=== PATIENT | female | born 1975 | race Two or more races ===

== ENCOUNTER 2017-08-02 21:16 | Inpatient (IN) | payer BC, OTHER ==
[~2017-08-02] VITALS: Ht 157.5 cm; Wt 85.3 kg
[2017-08-02] MEDS ORDERED: ENALAPRIL 2.5MG/2ML VIAL 2ML IV ONE (23:00)
[2017-08-02 23:14] LABS: BASOPHILS % 0.5 % (0.0-2.0); EOSINOPHILS % 3.1 % (0.0-5.0); HEMOGLOBIN. 12.7 g/dL (12.0-16.0); LYMPHOCYTES % 19.4 % (20.0-50.0); MEAN CORPUSCULAR HEMOGLOBIN 31.5 pg (28.0-32.0); MEAN CORPUSCULAR VOLUME 93.8 fL (81.0-99.0); MEAN PLATELET VOLUME 8.2 fl (7.4-10.4); MONOCYTES % 9.2 % (2.0-8.0); NEUTROPHILS % 67.8 % (40.0-76.0); PLATELET 271 x1000/uL (130-400); RED BLOOD CELL COUNT 4.05 mill/uL (4.2-5.4); RED CELL DISTRIBUTION WIDTH 13.8 % (11.6-14.6)
[2017-08-02 23:19] LABS: CHLORIDE 103 mEq/L (98-107)
[2017-08-02 23:22] LABS: CARBON DIOXIDE 27 mEq/L (21-32)
[2017-08-02 23:30] LABS: TROPONIN I < 0.02 ng/mL (0.00-0.04)
[2017-08-03 01:11] VITALS: BP 141/95
[2017-08-03] MEDS ORDERED: LISI-604 PO ×2 (01:26→15:38)
[2017-08-03] MEDS ORDERED: HYDROCODONE/ACETAMINOPHEN 5/325MG TABLET PO PRN (02:15)
[2017-08-03] MEDS ORDERED: CLONIDINE 0.1MG TABLET PO PRN (02:15)
[2017-08-03 04:00] VITALS: BP 104/62
[2017-08-03 06:17] LABS: BASOPHILS % 0.8 % (0.0-2.0); EOSINOPHILS % 3.6 % (0.0-5.0); HEMATOCRIT. 36.5 % (36.0-48.0); LYMPHOCYTES % 15.8 % (20.0-50.0); MEAN CORPUSCULAR HEMOGLOBIN 30.9 pg (28.0-32.0); MEAN CORPUSCULAR VOLUME 94.4 fL (81.0-99.0); MEAN PLATELET VOLUME 8.4 fl (7.4-10.4); MONOCYTES % 9.9 % (2.0-8.0); NEUTROPHILS % 69.9 % (40.0-76.0); PLATELET 247 x1000/uL (130-400); RED BLOOD CELL COUNT 3.87 mill/uL (4.2-5.4); RED CELL DISTRIBUTION WIDTH 13.8 % (11.6-14.6)
[2017-08-03 07:32] LABS: CARBON DIOXIDE 24 mEq/L (21-32); CHLORIDE 104 mEq/L (98-107)
[2017-08-03 08:00] VITALS: BP 132/87
[2017-08-03] MEDS ORDERED: ASPIRIN 325MG TABLET PO SCH (09:00)
[2017-08-03] MEDS ORDERED: METOPROLOL TARTRATE 50MG TABLET PO SCH (09:00)
[2017-08-03] MEDS ORDERED: LISINOPRIL 20MG TABLET PO SCH (09:00)
[2017-08-03] MEDS ORDERED: AMLODIPINE 10MG TABLET PO SCH (09:00)
[2017-08-03 12:00] VITALS: BP 131/89
[2017-08-03] MEDS ORDERED: METF-815 PO (15:38)
[2017-08-03] MEDS ORDERED: FUROSEMIDE 20MG TABLET PO NR (15:45)
== END 2017-08-03 17:20 | disposition home or self-care (01) | DRG 305 ==
LOC: ER 21:16 → 6WST 23:38 → EDBEDREQ 23:42 → ENRESERV 23:46
PROVIDERS: ADMIT Internal Medicine; ATTEND Internal Medicine
DX: I10 Essential (primary) hypertension (principal); E11.9 Type 2 diabetes mellitus without complications; E66.9 Obesity, unspecified; Z82.49 Family history of ischemic heart disease and other diseases of the circulatory system; Z68.34 Body mass index [BMI] 34.0-34.9, adult; Z98.51 Tubal ligation status; Z79.899 Other long term (current) drug therapy
CPT/HCPCS: 36415; 70450; 71010; 80048; 80053; 83036; 84484; 85025; 93005; 96374; 99285; J3490

== ENCOUNTER 2020-10-25 03:24 | Inpatient (IN) | payer OTHER, MEDICAID ==
[~2020-10-25] VITALS: Ht 157.5 cm; Wt 81.2 kg
[~2020-10-25 03:24] MED LIST: LISI-604 PO; METF-873 PO
[2020-10-25 05:54] LABS: BASOPHILS % 0.7 % (0.0-2.0); EOSINOPHILS % 3.8 % (0.0-5.0); HEMATOCRIT. 38.1 % (36.0-48.0); LYMPHOCYTES % 25.7 % (20.0-50.0); MEAN CORPUSCULAR HEMOGLOBIN 31.2 pg (28.0-32.0); MEAN CORPUSCULAR VOLUME 91.2 fL (81.0-99.0); MEAN PLATELET VOLUME 8.3 fl (7.4-10.4); MONOCYTES % 9.9 % (2.0-8.0); NEUTROPHILS % 59.9 % (40.0-76.0); PLATELET 246 x1000/uL (130-400); RED BLOOD CELL COUNT 4.18 mill/uL (4.2-5.4); RED CELL DISTRIBUTION WIDTH 14.2 % (11.6-14.6)
[2020-10-25 06:05] LABS: CHLORIDE 101 mEq/L (98-107)
[2020-10-25] MEDS ORDERED: MORPHINE SULFATE 4 MG/ML CPJ (NOT FOR IM USE) IV ONE (06:30)
[2020-10-25] MEDS ORDERED: ASPIRIN 325MG EC TABLET PO ONE (07:00)
[2020-10-25] MEDS ORDERED: KETOROLAC 30MG/ML VIAL IV ONE (12:30)
[2020-10-25] MEDS ORDERED: POTASSIUM CHLORIDE 20MEQ/PACKET PO NR (15:45)
[2020-10-25] MEDS ORDERED: LORAZEPAM 0.5MG TABLET PO PRN (16:30)
[2020-10-25] MEDS ORDERED: ACETAMINOPHEN 325MG TABLET PO PRN (16:30)
[2020-10-25] MEDS ORDERED: DIPHENHYDRAMINE 50MG/ML VIAL IV PRN (16:30)
[2020-10-25] MEDS ORDERED: DOCUSATE SODIUM 100MG CAPSULE PO PRN (16:30)
[2020-10-25] MEDS ORDERED: IPRATROPIUM/ALBUTEROL 0.5-3(2.5)MG/3ML NEB NEB PRN (16:30)
[2020-10-25] MEDS ORDERED: GUAIFENESIN 200MG/10ML SUGAR FREE UDC PO PRN (16:30)
[2020-10-25] MEDS ORDERED: CLONIDINE 0.1MG TABLET PO PRN (16:30)
[2020-10-25] MEDS ORDERED: NA PHOS,M-B/NA PHOS,DI-BA ENEMA 118ML PR PRN (16:30)
[2020-10-25] MEDS ORDERED: HYDROCODONE/ACETAMINOPHEN 5/325MG TABLET PO PRN (16:30)
[2020-10-25] MEDS ORDERED: DEXTROSE 50% WATER 50ML SYRINGE IV PRN (16:30)
[2020-10-25] MEDS ORDERED: ONDANSETRON HCL 4MG/2ML INJ IV PRN (16:30)
[2020-10-25] MEDS ORDERED: ACETAMINOPHEN 650MG SUPP PR PRN (16:30)
[2020-10-25] MEDS ORDERED: MAGNESIUM/ALUMINUM HYDROXIDE/SIMETHICONE 30ML UDC PO PRN (16:30)
[2020-10-25] MEDS ORDERED: MORPHINE SULFATE 2 MG/ML CPJ (NOT FOR IM USE) IV PRN (16:30)
[2020-10-25] MEDS: ENOXAPARIN 40MG/0.4ML SYR SUBCUT SCH (17:00)
[2020-10-25] MEDS ORDERED: REGADENOSON 0.4 MG/5 ML IV ONE (17:15)
[2020-10-25] MEDS: BLOOD SUGAR DIAGNOSTIC STRIP TEST SCH ×2 (20:05→20:15)
[2020-10-25] MEDS: FAMOTIDINE 20MG TABLET PO SCH (20:14)
[2020-10-25] MEDS: INSULIN LISPRO 100 UNITS/ML SUBCUT SCH ×2 (20:14→22:43)
[2020-10-25] MEDS: NITROGLYCERIN OINT 1GM/INCH UDPKT TD SCH (21:15)
[2020-10-26] VITALS (11 sets, daily range): BP systolic 114–147; BP diastolic 73–98
[2020-10-26] MEDS ORDERED: DEXT 5%/0.45% NACL 1000ML 1,000 ML IV SCH
[2020-10-26 01:25] LABS: CREATINE KINASE 63 IU/L (26-192)
[2020-10-26 01:27] LABS: CREATINE KINASE MB FRACTION < 1.0 ng/mL (0.5-3.6)
[2020-10-26] MEDS: BLOOD SUGAR DIAGNOSTIC STRIP TEST SCH ×4 (06:31→21:00)
[2020-10-26] MEDS: NITROGLYCERIN OINT 1GM/INCH UDPKT TD SCH ×2 (06:31→14:00)
[2020-10-26] MEDS: INSULIN LISPRO 100 UNITS/ML SUBCUT SCH ×4 (06:31→21:00)
[2020-10-26] MEDS: ASPIRIN 81MG EC TABLET PO SCH (08:13)
[2020-10-26] MEDS: LOSARTAN POTASSIUM 25 MG TABLET PO SCH (08:13)
[2020-10-26] MEDS ORDERED: REGADENOSON 0.4 MG/5 ML IV ONE (09:05)
[2020-10-26 12:30] LABS: CLARITY URINE CLOUDY (CLEAR); COLOR URINE ORANGE (YELLOW); KETONES URINE TRACE (NEGATIVE); LEUKOCYTE ESTERASE URINE 1+ (NEGATIVE); NITRITE URINE NEGATIVE (NEGATIVE); OCCULT BLOOD URINE 3+ (NEGATIVE); PROTEIN URINE 1+ (NEGATIVE); SPECIFIC GRAVITY URINE 1.016 (1.005-1.030); UROBILINOGEN URINE 0.2 E.U./dL (0.2-1.0)
[2020-10-26] MEDS ORDERED: KETOROLAC 30MG/ML VIAL IV NR (12:30)
[2020-10-26] MEDS ORDERED: ONDANSETRON HCL 4MG/2ML INJ IV NR (12:30)
[2020-10-26 13:05] LABS: *BARBITURATES SCREEN URINE NEGATIVE (NEGATIVE)
[2020-10-26 13:06] LABS: OPIATES URINE SCREEN NEGATIVE (NEGATIVE); PHENCYCLIDINE URINE SCREEN NEGATIVE (NEGATIVE)
[2020-10-26 13:07] LABS: *AMPHETAMINES SCREEN URINE NEGATIVE (NEGATIVE); *BENZODIAZEPINES SCREEN URINE NEGATIVE (NEGATIVE); *COCAINE SCREEN URINE NEGATIVE (NEGATIVE); CANNABINOID URINE SCREEN NEGATIVE (NEGATIVE); METHADONE URINE SCREEN NEGATIVE (NEGATIVE)
[2020-10-26 13:19] LABS: BASOPHILS % 0.5 % (0.0-2.0); EOSINOPHILS % 2.2 % (0.0-5.0); HEMATOCRIT. 36.8 % (36.0-48.0); HEMOGLOBIN. 12.2 g/dL (12.0-16.0); LYMPHOCYTES % 16.4 % (20.0-50.0); MEAN CORPUSCULAR HEMOGLOBIN 30.3 pg (28.0-32.0); MEAN CORPUSCULAR VOLUME 91.4 fL (81.0-99.0); MEAN PLATELET VOLUME 8.1 fl (7.4-10.4); MONOCYTES % 6.7 % (2.0-8.0); NEUTROPHILS % 74.2 % (40.0-76.0); PLATELET 233 x1000/uL (130-400); RED BLOOD CELL COUNT 4.03 mill/uL (4.2-5.4); RED CELL DISTRIBUTION WIDTH 14.1 % (11.6-14.6)
[2020-10-26 13:30] LABS: CHLORIDE 104 mEq/L (98-107)
[2020-10-26 13:38] LABS: LDL CHOLESTEROL 53 mg/dL (5-100)
[2020-10-26 13:39] LABS: CREATINE KINASE 61 IU/L (26-192); CREATINE KINASE MB FRACTION < 1.0 ng/mL (0.5-3.6); HDL CHOLESTEROL 25 mg/dL (40-59); T4 FREE 1.13 ng/dL (0.76-1.46)
[2020-10-26] MEDS ORDERED: TRAM50TA94 MT (15:37)
[2020-10-26] MEDS ORDERED: LOSA25TA3 MT (15:37)
[2020-10-26] MEDS ORDERED: ASPI-1406 MT (15:37)
[2020-10-26 16:14] LABS: HCG SCREEN NEGATIVE
[2020-10-26] MEDS ORDERED: KETOROLAC 15MG/ML VIAL IV PRN (19:00)
[2020-10-26] MEDS: ENOXAPARIN 40MG/0.4ML SYR SUBCUT SCH (19:42)
[2020-10-26] MEDS: FAMOTIDINE 20MG TABLET PO SCH (23:05)
[2020-10-27] VITALS (7 sets, daily range): BP systolic 114–132; BP diastolic 65–88
[2020-10-27] MEDS: BLOOD SUGAR DIAGNOSTIC STRIP TEST SCH ×2 (06:26→12:40)
[2020-10-27] MEDS: INSULIN LISPRO 100 UNITS/ML SUBCUT SCH ×2 (06:32→12:20)
[2020-10-27 09:11] LABS: BASOPHILS % 0.6 % (0.0-2.0); EOSINOPHILS % 4.6 % (0.0-5.0); HEMOGLOBIN. 12.7 g/dL (12.0-16.0); LYMPHOCYTES % 25.4 % (20.0-50.0); MEAN CORPUSCULAR HEMOGLOBIN 30.5 pg (28.0-32.0); MEAN CORPUSCULAR VOLUME 91.7 fL (81.0-99.0); MONOCYTES % 9.6 % (2.0-8.0); NEUTROPHILS % 59.8 % (40.0-76.0); PLATELET 221 x1000/uL (130-400); RED BLOOD CELL COUNT 4.14 mill/uL (4.2-5.4); RED CELL DISTRIBUTION WIDTH 13.8 % (11.6-14.6)
[2020-10-27 09:29] LABS: CHLORIDE 103 mEq/L (98-107)
[2020-10-27] MEDS: LOSARTAN POTASSIUM 25 MG TABLET PO SCH (10:16)
[2020-10-27] MEDS: ASPIRIN 81MG EC TABLET PO SCH (10:16)
== END 2020-10-27 16:57 | disposition home or self-care (01) | DRG 206 ==
LOC: ER 03:24 → MICUSO 09:56 → EDBEDREQ 10:01 → 3WST 10-26 03:41
PROVIDERS: ADMIT Internal Medicine; ATTEND Internal Medicine
DX: M94.0 Chondrocostal junction syndrome [Tietze] (principal); E11.65 Type 2 diabetes mellitus with hyperglycemia; E66.9 Obesity, unspecified; E87.6 Hypokalemia; I10 Essential (primary) hypertension; R51.9 Headache, unspecified; D72.819 Decreased white blood cell count, unspecified; T46.3X5A Adverse effect of coronary vasodilators, initial encounter; Z20.822 Contact with and (suspected) exposure to COVID-19; Z79.82 Long term (current) use of aspirin; Z98.51 Tubal ligation status; Z79.84 Long term (current) use of oral hypoglycemic drugs; Z79.899 Other long term (current) drug therapy; Z68.32 Body mass index [BMI] 32.0-32.9, adult; Y92.89 Other specified places as the place of occurrence of the external cause
CPT/HCPCS: 36415; 71045; 78452; 80048; 80053; 80061; 80305; 81003; 82550; 82553; 82962; 83036; 83880; 84439; 84443; 84484; 84703; 85025; 85379; 87426; 93005; 93017; 93306; 93970; 99285; A9500; J1650; J1815; J1885; J2270; J2405; J2785

== ENCOUNTER 2021-05-06 23:57 | Emergency (ER) | payer MEDICAID, OTHER ==
[~2021-05-06] VITALS: Ht 157.5 cm; Wt 82.0 kg
[~2021-05-06 23:57] MED LIST changes: +ASPI-1406 MT; -LISI-604 PO; +LOSA25TA3 MT; +TRAM50TA94 MT
[2021-05-07 04:22] LABS: BASOPHILS % 0.8 % (0.0-2.0); EOSINOPHILS % 7.4 % (0.0-5.0); HEMATOCRIT. 35.2 % (36.0-48.0); HEMOGLOBIN. 11.9 g/dL (12.0-16.0); LYMPHOCYTES % 26.8 % (20.0-50.0); MEAN CORPUSCULAR HEMOGLOBIN 31.3 pg (28.0-32.0); MEAN CORPUSCULAR VOLUME 92.3 fL (81.0-99.0); MEAN PLATELET VOLUME 7.7 fl (7.4-10.4); MONOCYTES % 9.2 % (2.0-8.0); NEUTROPHILS % 55.8 % (40.0-76.0); PLATELET 254 x1000/uL (130-400); RED BLOOD CELL COUNT 3.82 mill/uL (4.2-5.4); RED CELL DISTRIBUTION WIDTH 14.3 % (11.6-14.6)
[2021-05-07 04:30] LABS: CHLORIDE 106 mEq/L (98-107)
[2021-05-07 04:34] LABS: ETHANOL BLOOD < 10 mg/dL
[2021-05-07] MEDS ORDERED: KETOROLAC 15MG/ML VIAL IV ONE (04:45)
[2021-05-07 05:41] LABS: CLARITY URINE CLEAR (CLEAR); COLOR URINE YELLOW (YELLOW); KETONES URINE NEGATIVE (NEGATIVE); LEUKOCYTE ESTERASE URINE 2+ (NEGATIVE); NITRITE URINE NEGATIVE (NEGATIVE); OCCULT BLOOD URINE 3+ (NEGATIVE); PROTEIN URINE NEGATIVE (NEGATIVE); SPECIFIC GRAVITY URINE 1.014 (1.005-1.030); UROBILINOGEN URINE 0.2 E.U./dL (0.2-1.0)
[2021-05-07 05:59] LABS: *BARBITURATES SCREEN URINE NEGATIVE (NEGATIVE); *COCAINE SCREEN URINE NEGATIVE (NEGATIVE); CANNABINOID URINE SCREEN NEGATIVE (NEGATIVE)
[2021-05-07 06:00] LABS: *AMPHETAMINES SCREEN URINE NEGATIVE (NEGATIVE); *BENZODIAZEPINES SCREEN URINE NEGATIVE (NEGATIVE); METHADONE URINE SCREEN NEGATIVE (NEGATIVE); OPIATES URINE SCREEN NEGATIVE (NEGATIVE)
[2021-05-07 06:01] LABS: PHENCYCLIDINE URINE SCREEN NEGATIVE (NEGATIVE)
[2021-05-07] MEDS ORDERED: SODIUM CHLORIDE 0.9% 1,000 ML IV ONE (06:30)
[2021-05-07] MEDS ORDERED: DIPHENHYDRAMINE 50MG/ML VIAL IV ONE (06:30)
[2021-05-07] MEDS ORDERED: METOCLOPRAMIDE HCL 10MG/2ML VIAL IV ONE (06:30)
[2021-05-07 08:17] VITALS: BP 155/95
[2021-05-07 08:39] LABS: BASOPHILS % 0.7 % (0.0-2.0); CHLORIDE 108 mEq/L (98-107); EOSINOPHILS % 6.6 % (0.0-5.0); HEMOGLOBIN. 11.6 g/dL (12.0-16.0); LYMPHOCYTES % 25.3 % (20.0-50.0); MEAN CORPUSCULAR HEMOGLOBIN 31.1 pg (28.0-32.0); MEAN CORPUSCULAR VOLUME 93.5 fL (81.0-99.0); MONOCYTES % 9.1 % (2.0-8.0); NEUTROPHILS % 58.3 % (40.0-76.0); PLATELET 242 x1000/uL (130-400); RED BLOOD CELL COUNT 3.74 mill/uL (4.2-5.4); RED CELL DISTRIBUTION WIDTH 14.3 % (11.6-14.6)
[2021-05-07 08:45] LABS: HCG SCREEN NEGATIVE
[2021-05-07] MEDS ORDERED: IBUP-2028 MT (09:06)
== END 2021-05-07 09:39 | disposition home or self-care (01) ==
LOC: ER 23:57
DX: R51.9 Headache, unspecified (principal); D64.9 Anemia, unspecified; I10 Essential (primary) hypertension; E11.9 Type 2 diabetes mellitus without complications; F17.210 Nicotine dependence, cigarettes, uncomplicated
CPT/HCPCS: 36415; 70450; 71045; 80053; 80305; 80320; 81003; 82962; 83690; 84484; 84703; 85025; 93005; 96361; 96374; 96375; 99285; J1200; J1885; J2765; J7030; G0480